=== PATIENT | female | born 1985 | race Caucasian/White ===

== ENCOUNTER 2020-08-25 15:35 | Inpatient (IN) | payer MEDICAID ==
[2020-08-25] MEDS ORDERED: ACETAMINOPHEN 325 MG TAB PO PRN (16:02)
[2020-08-25] MEDS ORDERED: MINERAL OIL 30 ML ORAL LIQD PO PRN (16:02)
[2020-08-25] MEDS ORDERED: PROMETHAZINE 25 MG TAB PO PRN (16:02)
[2020-08-25] MEDS ORDERED: NalbUPHINE 10 MG/1 ML INJ IV PRN (16:02)
[2020-08-25] MEDS ORDERED: METHYLERGONOVINE MALEATE 0.2 MG/ML VIAL IM PRN (16:02)
[2020-08-25] MEDS ORDERED: ePHEDrine SULFATE 50 MG/1 ML INJ IV PRN ×2 (16:02→20:48)
[2020-08-25] MEDS ORDERED: LIDOCAINE (2%) 20 MG/1 ML VIAL 20 ML MDV INFILTRATI ONE ×2 (16:02→23:43)
[2020-08-25] MEDS ORDERED: TERBUTALINE 1 MG/1 ML INJ SUB-Q PRN (16:02)
[2020-08-25] MEDS ORDERED: BUTORPHANOL 2 MG/1 ML INJ IV PRN ×2 (16:02)
[2020-08-25] MEDS ORDERED: fentaNYL 100 MCG/2 ML INJ IV PRN (16:02)
[2020-08-25 16:51] LABS: Hematocrit 31.7 % (30.3-42.9); Hemoglobin 10.7 gm/dl (10.1-14.3); Mean Corpuscular HGB Conc 34 % (30-34); Mean Corpuscular Volume 79 fl (79-97); Platelet Count 228 K/mm3 (140-440); Red Blood Count 4.03 M/mm3 (3.65-5.03); Red Cell Distribution Width 17.1 % (13.2-15.2)
[2020-08-25] MEDS ORDERED: OXYTOCIN DRIP 30 UNITS/500 ML BAG IV SCH ×2 (17:00)
[2020-08-25] MEDS ORDERED: LACTATED RINGERS 1,000 ML IV SCH (17:15)
--- NOTE | 2020-08-25 17:55 | History and Physical Report ---
History of Present Illness Date of examination: 08/25/20 Date of admission: 08/25/20 15:35 Chief complaint: Pt presents for an IOL r/t AMA and GDM History of present illness: 35 y/o Female presents to [facility] for an IOL r/t AMA and GDM diet controlled. She initiated her pnc at [facility] @ 9 2/7 wks. Pt was co managed by [facility]. Medical hx rubella NI, Varicella NI, Vit D def. Surgical, social, family hx unremarkable. Pt was admitted to L&D for an IOL. Labs: O pos AB screen neg HIV- neg, VDRL NR, HBsAG - neg Rubella, and Varicella- NI AFP neg pap wnl, gc/chly trich- neg Hgb- 11.2 PLT 250 Urine c&s -neg GBS -neg Past History Past Medical History: no pertinent history Past Surgical History: no surgical history Family/Genetic History: none Social history: no significant social history - Obstetrical History : 6 Hx # Term Pregnancies: 5 Number of Living Children: 5 Medications and Allergies Allergies Allergy/AdvReac Type Severity Reaction Status Date / Time No Known Allergies Allergy Verified 09/10/13 03:59 Home Medications Medication Instructions Recorded Confirmed Last Taken Type HYDROcodone/APAP 5-325 [Woolwine 1 each PO Q8HR PRN #10 tablet 09/21/13 Unknown Rx 5-325 mg TAB] Active Meds: Active Medications Acetaminophen (Acetaminophen 325 Mg Tab) 650 mg PO Q4H PRN PRN Reason: Pain, Mild (1-3) Butorphanol Tartrate (Butorphanol 2 Mg/1 Ml Inj) 1 mg IV Q2H PRN PRN Reason: Pain, Moderate(4-6) LABOR PAIN Butorphanol Tartrate (Butorphanol 2 Mg/1 Ml Inj) 2 mg IV Q2H PRN PRN Reason: Pain , Severe (7-10) Ephedrine Sulfate (Ephedrine Sulfate 50 Mg/1 Ml Inj) 10 mg IV Q2M PRN PRN Reason: Hypotension Fentanyl (Fentanyl 100 Mcg/2 Ml Inj) 100 mcg IV Q2H PRN PRN Reason: Pain,Severe (7-10) LABOR PAIN Oxytocin/Sodium Chloride (Pitocin/Ns 30 Unit/500ml) 30 units in 500 mls @ 2 mls/hr IV TITR MYRNA; Protocol Lactated Ringer's (Lactated Ringers) 1,000 mls @ 125 mls/hr IV DIRECT MYRNA Oxytocin/Sodium Chloride (Pitocin/Ns 30 Unit/500ml) 30 units in 500 mls @ 40 mls/hr IV TITR MYRNA; Protocol Methylergonovine Maleate (Methylergonovine Maleate 0.2 Mg/Ml Vial) 0.2 mg IM ONCE PRN PRN Reason: Uterine Bleeding Mineral Oil (Mineral Oil 30 Ml Oral Liqd) 30 ml PO QHS PRN PRN Reason: Constipation Nalbuphine HCl (Nalbuphine 10 Mg/1 Ml Inj) 10 mg IV Q2H PRN PRN Reason: Pain, Moderate (4-6) Promethazine HCl (Promethazine 25 Mg Tab) 25 mg PO Q6H PRN PRN Reason: Nausea And Vomiting Terbutaline Sulfate (Terbutaline 1 Mg/1 Ml Inj) 0.25 mg SUB-Q ONCE PRN PRN Reason: Hyperstimulation/Hypertonicity Review of Systems All systems: negative Eyes: deferred Ears, nose, mouth and throat: deferred Breasts: normal Genitourinary: normal appearance Rectal Exam: deferred - Vital Signs Vital signs: Vital Signs Pulse Pulse Ox 96 H 98 08/25/20 15:38 08/25/20 15:38 Temp Pulse Resp BP Pulse Ox 97.9 F 82 16 121/80 99 08/25/20 15:55 08/25/20 17:38 08/25/20 15:55 08/25/20 17:28 08/25/20 17:38 - Physical Exam Breasts: Positive: normal Abdomen: Positive: normal appearance, soft, normal bowel sounds, other (gravid) Genitourinary (Female): Positive: normal external genitalia, normal perenium Vulva: both: normal Vagina: Positive: normal moisture Uterus: Positive: enlarged, normal contour, other (gravid) Adnexa: both: normal Anus/Rectum: Positive: normal perianal skin Extremities: Positive: normal - Obstetrical FHR: auscultation normal, category 1 Uterine Contraction Monitor Mode: External Cervical Dilatation: 2 (per nurse) Cervical Effacement Percentage: 70 (per nurse) station: -2 Uterine Contraction Frequency (min): irreg Uterine Contraction Pattern: Irregular Uterine Tone Measurement Phase: Resting Uterine Contraction Intensity: Mild Results Result Diagrams: 08/25/20 16:30 Abnormal lab results 08/25/20 Range/Units 16:30 MCH 27 L (28-32) pg RDW 17.1 H (13.2-15.2) % All other labs normal. Assessment and Plan A: IUP@ 39.2 wks AMA; GDM diet controlled P: Admit to L&D Continuous monitoring FSBS AC and HS Start Pitocin per protocal Pain med/ Epidural prn Offer Rubella and Varicella vaccine pp BTL @ 6 wks pp per pt request Anticipate
--- NOTE | 2020-08-25 19:38 | Event Note ---
Date: 08/25/20 pt evaluated after receiving sign out from previous ob team. Pelvic 1 with bloody show. pt states her accucheck was done and same not recorded. Nurse instructed to check accucheck now and then every 1hr in active labor. Will give fentanyl for pain now and give IV hydration in preparation for epidrual as desired by pt. Will AROM after epidural if tracing remains reassuring FHR Category I and conracting irregularly 2-7mins. Will augment with pitocin when pt is comfortable. Plan of care discussed. Expect . records revi ewed and pt desires no future fertility, pt is non-immune and GDM. Expect
[2020-08-25] MEDS ORDERED: NALOXONE 2 MG/2 ML INJ IV PRN (20:48)
--- NOTE | 2020-08-25 20:48 | Anesthesia Consultation ---
Anesthesia Consult and Med Hx Date of service: 08/25/20 - Pulmonary Exam CTA: Yes - Cardiac Exam Cardiac Exam: RRR - Pre-Operative Health Status ASA Pre-Surgery Classification: ASA2 Proposed Anesthetic Plan: Epidural - Pulmonary Hx Asthma: No COPD: No Hx Pneumonia: No - Cardiovascular System Hx Hypertension: No Hx Heart Attack/AMI: No Hx Valvular Heart Disease: No - Central Nervous System Hx Seizures: No CVA: No Hx Psychiatric Problems: No - Endocrine Hx Renal Disease: No Hx End Stage Renal Disease: No Hx Liver Disease: No Hx Hypothyroidism: No Hx Hyperthyroidism: No - Hematic Hx Anemia: No Hx Sickle Cell Disease: No - Other Systems Hx Alcohol Use: No Hx Substance Use: No Hx Cancer: No
[2020-08-25] MEDS ORDERED: fentaNYL-BUPIV 2 MCG/ML-0.125% 200 MCG/100 ML BAG EPIDURAL SCH (21:00)
--- NOTE | 2020-08-25 21:07 | Progress Note ---
Labor Epidural - Labor Epidural Start Time: 20:54 Stop Time: 20:59 Performed by:: KARIN CARTER Procedure: Patient is requesting epidural for labor pain. H&P, and labs reviewed. Procedure explained, questions answered, consent obtained. Patient in sitting position with blood pressure cuff and pulse ox on and working. Timeout performed immediately before start of procedure. Sterile chlorahexadine 0.5% prep/drape. 3 mL 1% lidocaine skin wheal at L[3]-L[4]. 18-gauge Tuohy epidural needle advanced to [id number] with saline at [7] cm. Epidural dexmedetomidine [30] mcg administered. Epidural catheter advanced to [12] cm, negative aspiration for blood and csf, negative test dose 3 ml 1.5% lidocaine with epinephrine. Sterile steri-strips and tegaderm applied, followed by tape reinforcement. Patient tolerated procedure well.
--- NOTE | 2020-08-26 00:15 | Event Note ---
Date: 08/25/20 pt evaluated earlier after epidural, AROM done with clear fluid and IUPC placed. Nurse told to augment labor with IV pitocin. FHR category I and pt with irregular ctx. Expect
--- NOTE | 2020-08-26 00:22 | Procedure Note ---
OB Delivery Note - Delivery Date of Delivery: 08/26/20 Surgeon: JESSE FOX Estimated blood loss: 300cc - Vaginal Delivery presentation: vertex Delivery position: OA Delivery induction: AROM Delivery augmentation: pitocin Delivery monitor: external FHT, external uterine, internal uterine Route of delivery: Delivery placenta: spontaneous Episiotomy: none Delivery laceration: 2nd degree (perineal) Delivery repair: chromic Anesthesia: epidural Delivery comments: SAVD of viable male vertex, uncomplicated on 08/25/20 and spontaneous delivery of intact placenta with 3vessel cord on 08/26/20. Sustained 2nd degree perineal laceration and same repaired with 2-0 chromic running locked suture and excellent hemostasis. Mom and baby stable. - A at 1 minute: 8 at 5 minutes: 9 Infant Gender: Male (wt 3249g;)
[2020-08-26] MEDS ORDERED: ONDANSETRON 4 MG/2 ML INJ IV PRN (00:28)
[2020-08-26] MEDS ORDERED: diphenhydrAMINE 25 MG CAP PO PRN (00:28)
[2020-08-26] MEDS ORDERED: PROMETHAZINE 25 MG TAB PO PRN (00:28)
[2020-08-26] MEDS ORDERED: PROMETHAZINE 25 MG RECT SUPP PR PRN (00:28)
[2020-08-26] MEDS ORDERED: oxyCODONE /ACETAMINOPHEN 5-325MG TAB PO PRN (00:28)
[2020-08-26] MEDS ORDERED: LANOLIN/ZINC/DIMETHICONE (LANSINOH) 7 GM TP PRN (00:28)
[2020-08-26] MEDS ORDERED: MAGNESIUM HYDROXIDE (MOM) ORAL LIQD UDC PO PRN (00:28)
[2020-08-26] MEDS ORDERED: WITCH HAZEL/ GLYCERIN PAD TP PRN (00:28)
[2020-08-26] MEDS ORDERED: OXYTOCIN DRIP 30 UNITS/500 ML BAG IV SCH (01:00)
[2020-08-26] MEDS ORDERED: miSOPROStol 100 MCG TAB ONE (01:22)
[2020-08-26] MEDS ORDERED: miSOPROStol 200 MCG TAB VG ONE (01:26)
--- NOTE | 2020-08-26 01:56 | Event Note ---
Date: 08/26/20 Nurse called stating pt with slow trickle of blood from the vagina. Pt evaluated at bedside with 50cc of clot removed from lower uterine segment, straight cath done with 200cc concentrated urine. Speculum exam done again and no lacerations to her cervix or vagina; cytotec 800mcg placed per rectum. Pt given ancef 2gm x1 dose. Will observe for another 45mins on labor and delivery with uterine atony; vital signs remain stable and within normal limits.
[2020-08-26] MEDS: IBUPROFEN 600 MG TAB PO SCH ×3 (05:06→23:59)
[2020-08-26] MEDS ORDERED: PRENATAL VIT27-FE FUMARATE-FOLIC ACID VIT TAB PO SCH (10:00)
--- NOTE | 2020-08-26 11:51 | Discharge Summary ---
Providers - Providers Date of Admission: 08/25/20 15:35 Date of discharge: 08/27/20 Attending physician: MAREN EDMONDSON MD Primary care physician: MAREN EDMONDSON MD Hospitalization Reason for admission: induction of labor Delivery: Episiotomy: none Laceration: 2nd degree (healing as expected) Other procedures: none complications: none Discharge diagnosis: IUP at term delivered, other (anemia) baby: male Hospital course: See admission H & P; OB delivery summary and PP progress notes Condition at discharge: Good Disposition: DC-01 TO HOME OR SELFCARE - Discharge Diagnoses (1) Status post vaginal delivery Status: Acute (2) Anemia Status: Acute Qualifiers: Anemia type: other cause Other causes of anemia: acute posthemorrhagic Qualified Code(s): D62 - Acute posthemorrhagic anemia Comment: Asymptomatic Plan - Provider Discharge Summary Activity: routine, no sex for 6 weeks, no heavy lifting 4 weeks, no strenuous exercise Diet: other (Iron rich diet) Instructions: routine Additional instructions: [] Smoking cessation referral if applicable(refer to patient education folder for contact #) [] Refer to [facility] Booklet Call your doctor immediately for: * Fever > 100.5 * Heavy vaginal bleeding ( >1 pad per hour) * Severe persistent headache * Shortness of breath * Reddened, hot, painful area to leg or breast * Drainage or odor from incision. * Keep vaginal laceration site clean and dry at all times and follow doctor's instructions regarding bathing/showering - Follow up plan Follow up: MAREN EDMONDSON MD [Primary Care Provider] - 6 Weeks
[2020-08-26 12:46] LABS: Hematocrit 31.8 % (30.3-42.9); Hemoglobin 10.5 gm/dl (10.1-14.3)
--- NOTE | 2020-08-26 17:16 | Post Anesthesia Evaluation ---
- Post Anesthesia Evaluation Patient Participated: Yes Airway Patent: Yes Stable Respiratory Function: Yes Nausea/Vomiting: No Temp > 96.8F: Yes Pain Manageable: Yes Adequeate Hydration: Yes Anesthesia Complications: No Block Receding Appropriately: Yes
[2020-08-27] MEDS: IBUPROFEN 600 MG TAB PO SCH (05:52)
[2020-08-27 11:58] VITALS: BP 118/67
== END 2020-08-27 12:55 | disposition home or self-care (01) | DRG 775 ==
LOC: LD 15:35 → OB 08-26 03:35
PROVIDERS: ADMIT Obstetrics & Gynecology; ATTEND Obstetrics & Gynecology
PROC: 3E0R3BZ Introduction of Anesthetic Agent into Spinal Canal, Percutaneous Approach (ICD-10-PCS; 2020-08-25)
PROC: 00HU33Z Insertion of Infusion Device into Spinal Canal, Percutaneous Approach (ICD-10-PCS; 2020-08-25)
PROC: 10E0XZZ Delivery of Products of Conception, External Approach (ICD-10-PCS; principal; 2020-08-26)
PROC: 0KQM0ZZ Repair Perineum Muscle, Open Approach (ICD-10-PCS; 2020-08-26)
PROC: 10907ZC Drainage of Amniotic Fluid, Therapeutic from Products of Conception, Via Natural or Artificial Opening (ICD-10-PCS; 2020-08-26)
DX: O24.420 Gestational diabetes mellitus in childbirth, diet controlled (principal); Z3A.39 39 weeks gestation of pregnancy; Z37.0 Single live birth; Z20.822 Contact with and (suspected) exposure to COVID-19; O70.1 Second degree perineal laceration during delivery; D62 Acute posthemorrhagic anemia; O90.81 Anemia of the puerperium
CPT/HCPCS: 36415; 82962; 85014; 85018; 85027; 86850; 86900; 86901; G0378; J0690; J2590; J3010; U0003